=== PATIENT | male | born 1990 | race Caucasian/White ===

== ENCOUNTER 2016-10-06 21:40 | Emergency (ER) | payer MEDICAID ==
[~2016-10-06] VITALS: Ht 175.3 cm; Wt 77.3 kg
[2016-10-07 00:24] VITALS: BP 125/75
== END 2016-10-07 00:26 | disposition home or self-care (01) ==
LOC: EMS 21:41
DX: S83.91XA Sprain of unspecified site of right knee, initial encounter (principal); F12.90 Cannabis use, unspecified, uncomplicated; F17.210 Nicotine dependence, cigarettes, uncomplicated; X58.XXXA Exposure to other specified factors, initial encounter; Y93.41 Activity, dancing; Y92.89 Other specified places as the place of occurrence of the external cause; Y99.8 Other external cause status
CPT/HCPCS: 29505; 99284